=== PATIENT | female | born 1990 | race African-American/Black ===

== ENCOUNTER 2018-11-12 10:46 | Emergency (ER) | payer MEDICAID ==
[~2018-11-12] VITALS: Ht 177.8 cm; Wt 84.4 kg
--- NOTE | 2018-11-12 10:59 | NUR ---
ED Nurse Note: Pt ambulated to Ed from home. Pt is A&O x4, reporting 5/10 pain in left groin/hip area starting last night. pt is 22 weeks . Pt took tylenol last not but was ineffective. will continue to monitor Addendum: 11/12/18 at 1215 by KDEARING ED Nurse Note: Pt denies any vaginal bleeding at this time
--- NOTE | 2018-11-12 11:18 | NUR ---
ED Nurse Note: U/S tech contacted for pelvic u/s.
[2018-11-12 11:37] LABS: APPEARANCE,URINE CLEAR; BASOPHILS % (AUTO) 0.8 % (0.0-2.0); BILIRUBIN, URINE NEGATIVE (NEGATIVE); COLOR,URINE PALE YELLOW; EOSINOPHILS % (AUTO) 2.3 % (0.0-3.0); GLUCOSE, URINE (UA) NEGATIVE (NEGATIVE); HEMATOCRIT 35.2 % (37.0-47.0); KETONES,URINE NEGATIVE (NEGATIVE); LEUKOCYTE ESTERASE ,URINE 2+ (NEGATIVE); LYMPHOCYTES % (AUTO) 23.3 % (20.0-45.0); MEAN CORPUSCULAR VOLUME 86 FL (80-99); MONOCYTES % (AUTO) 6.3 % (1.0-10.0); NEUTROPHILS % (AUTO) 67.3 % (45.0-75.0); NITRITE,URINE NEGATIVE (NEGATIVE); PH,URINE 8 (4.5-8.0); PLATELET COUNT 179 K/UL (150-450); PROTEIN,URINE NEGATIVE (NEGATIVE); RED BLOOD COUNT 4.11 M/UL (4.20-5.40); RED CELL DISTRIBUTION WIDTH 12.3 % (11.6-14.8); UROBILINOGEN,URINE 1 MG/DL (0.0-1.0); WHITE BLOOD COUNT 6.8 K/UL (4.8-10.8)
[2018-11-12 11:47] LABS: ANION GAP 8 mmol/L (5-15); BLOOD UREA NITROGEN 7 mg/dL (7-18); CALCIUM 8.8 MG/DL (8.5-10.1); CARBON DIOXIDE 26 MMOL/L (21-32); CHLORIDE 102 MMOL/L (98-107); CREATININE 0.6 MG/DL (0.55-1.30); POTASSIUM 3.8 MMOL/L (3.5-5.1); SODIUM 136 MMOL/L (136-145)
[2018-11-12 11:52] LABS: ALANINE AMINOTRANSFERASE 37 U/L (12-78); ALBUMIN 3.1 G/DL (3.4-5.0); ALBUMIN/GLOBULIN RATIO 0.8 (1.0-2.7); ALKALINE PHOSPHATASE 80 U/L (46-116); ASPARTATE AMINO TRANSFERASE 27 U/L (15-37)
--- NOTE | 2018-11-12 12:25 | Emergency Room Report ---
History of Present Illness General Chief Complaint: Abdominal Pain Source: Patient (Kay Phillips DO) Present Illness HPI This patient is at 22 weeks gestational age. The has been normal without complications. The patient presents today for 1 day of lower abdominal pain. Patient describes the pain is diffusely in her lower pelvis. She denies vaginal bleeding. She denies abnormal vaginal discharge. She denies that the pain comes in waves. She does not believe she is having contractions but is unsure. She denies recent illness. She denies fever or chills. She denies nausea or vomiting. She denies dysuria or hematuria. She has no other complaints. (Kay Phillips DO) Allergies: Coded Allergies: No Known Allergies (Unverified , 11/12/18) Patient History Past Medical History: see triage record, other - Cholelithiasis, Abdominal hernia Social History: Denies: smoking, alcohol use, drug use Now: Yes - 22 weeks Reviewed Nursing Documentation: PMH: Agreed; PSxH: Agreed (Kay Phillips DO) Nursing Documentation-PMH Past Medical History: No History, Except For (Kay Phillips DO) Review of Systems All Other Systems: negative except mentioned in HPI (Kay Phillips DO) Physical Exam Vital Signs Date Time Temp Pulse Resp B/P (MAP) Pulse Ox O2 Delivery O2 Flow Rate FiO2 11/12/18 10:56 98.2 74 20 98 Room Air 11/12/18 11:58 99 Sp02 EP Interpretation: reviewed, normal General Appearance: no apparent distress, alert, GCS 15, non-toxic Head: normocephalic, atraumatic Eyes: bilateral eye normal inspection, bilateral eye PERRL ENT: hearing grossly normal, normal pharynx, no angioedema, normal voice Neck: full range of motion, supple/symm/no masses Respiratory: chest non-tender, lungs clear, normal breath sounds, no respiratory distress, no retraction, no accessory muscle use, speaking full sentences Cardiovascular #1: regular rate, rhythm, no edema Gastrointestinal: normal bowel sounds, soft, no guarding, no rebound, other - Gravid, C/W dates. Rectal: deferred Musculoskeletal: back normal, gait/station normal, normal range of motion, non- tender Neurologic: alert, oriented x3, responsive, motor strength/tone normal, sensory intact, speech normal Psychiatric: judgement/insight normal, memory normal, mood/affect normal, no suicidal/homicidal ideation Skin: normal color, no rash, warm/dry, well hydrated (Kay Phillips DO) Medical Decision Making Diagnostic Impression: Primary Impression: Abdominal pain during ER Course Patient evaluation overall is reassuring. I have a low suspicion for a serious intra-abdominal bacterial infection. Although, appendicitis can be atypical in . However I do have low suspicion for that at this time. The patient underwent OB ultrasound which showed an intrauterine with heartbeat at 22 weeks. See official report in the electronic medical record. The patient was educated that a negative ultrasound evaluation does not insure well-being or positive outcome for the . monitoring including a nonstress test may be needed and clinical evaluation by SLAG WORKER is highly recommended and that she is pending transfer to [facility] for monitoring. Laboratory Tests Test 11/12/18 11:25 White Blood Count 6.8 K/UL (4.8-10.8) Red Blood Count 4.11 M/UL (4.20-5.40) L Hemoglobin 12.0 G/DL (12.0-16.0) Hematocrit 35.2 % (37.0-47.0) L Mean Corpuscular Volume 86 FL (80-99) Mean Corpuscular Hemoglobin 29.2 PG (27.0-31.0) Mean Corpuscular Hemoglobin Concent 34.0 G/DL (32.0-36.0) Red Cell Distribution Width 12.3 % (11.6-14.8) Platelet Count 179 K/UL (150-450) Mean Platelet Volume 7.1 FL (6.5-10.1) Neutrophils (%) (Auto) 67.3 % (45.0-75.0) Lymphocytes (%) (Auto) 23.3 % (20.0-45.0) Monocytes (%) (Auto) 6.3 % (1.0-10.0) Eosinophils (%) (Auto) 2.3 % (0.0-3.0) Basophils (%) (Auto) 0.8 % (0.0-2.0) Urine Color Pale yellow Urine Appearance Clear Urine pH 8 (4.5-8.0) Urine Specific [place] 1.010 (1.005-1.035) Urine Protein Negative (NEGATIVE) Urine Glucose (UA) Negative (NEGATIVE) Urine Ketones Negative (NEGATIVE) Urine Blood Negative (NEGATIVE) Urine Nitrite Negative (NEGATIVE) Urine Bilirubin Negative (NEGATIVE) Urine Urobilinogen 1 MG/DL (0.0-1.0) H Urine Leukocyte Esterase 2+ (NEGATIVE) H Urine RBC 0 /HPF (0 - 2) Urine WBC 2-4 /HPF (0 - 2) Urine Squamous Epithelial Cells Occasional /LPF Urine Bacteria Few /HPF (NONE) Sodium Level 136 MMOL/L (136-145) Potassium Level 3.8 MMOL/L (3.5-5.1) Chloride Level 102 MMOL/L (98-107) Carbon Dioxide Level 26 MMOL/L (21-32) Anion Gap 8 mmol/L (5-15) Blood Urea Nitrogen 7 mg/dL (7-18) Creatinine 0.6 MG/DL (0.55-1.30) Estimate Glomerular Filtration Rate > 60 mL/min (>60) Glucose Level 87 MG/DL (74-106) Calcium Level 8.8 MG/DL (8.5-10.1) Total Bilirubin 1.0 MG/DL (0.2-1.0) Aspartate Amino Transferase (AST) 27 U/L (15-37) Alanine Aminotransferase (ALT) 37 U/L (12-78) Alkaline Phosphatase 80 U/L (46-116) Total Protein 6.9 G/DL (6.4-8.2) Albumin 3.1 G/DL (3.4-5.0) L Globulin 3.8 g/dL Albumin/Globulin Ratio 0.8 (1.0-2.7) L Human Chorionic Gonadotropin, Quant 07169 mIU/mL (1-6) H (Kay Phillips DO) ER Course Please note that the patient was being contacted to [facility] for transfer patient is over 20 weeks and had presented for abdominal pain. Initial blood work was appropriate here And given the patient's gestational age require transfer at this time patient has presented and reports that she has to pickup her daughter from school and cannot be transferred at this time patient is aware that at 22 weeks she requires monitoring and possible intervention if needed bleeding at this time can lead to worsening symptoms and possible miscarriage, demise , risking life of mother as well Patient is awake and oriented full decision-making capacity and is leaving AGAINST MEDICAL ADVICE, (Chalo Green DO) CT/MRI/US Diagnostic Results CT/MRI/US Diagnostic Results : Imaging Test Ordered: US OB Impression Single living IUP 22 weeks 6 days. Portions of anatomy not well demonstrated on this study. Suggest follow-up ultrasound. Maternal right hydronephrosis probably related to gravid state. Maternal Cholelithiasis. (Kay Phillips DO) Last Vital Signs Date Time Temp Pulse Resp B/P (MAP) Pulse Ox O2 Delivery O2 Flow Rate FiO2 11/12/18 11:58 16 Room Air 99 11/12/18 10:56 98.2 74 98 (Kay Phillips DO) Referrals: NON PHYSICIAN (PCP) Kay Phillips DO November 12, 2018 12:25 Chalo Green DO November 12, 2018 13:23
--- NOTE | 2018-11-12 13:00 | NUR ---
ED Nurse Note: Patient states 'I need to leave now. I need to waste picker kids'. Significant other at bedside. Dr. Green notified.
[2018-11-12 13:15] VITALS: BP 111/73
--- NOTE | 2018-11-12 13:15 | NUR ---
Note maeveone in EDM - 11/12/18 at 1420 by BUSHRA ED Nurse Note: Dr. Green told patient of possible risks and consequences of her leaving the hospital with current condition and pending u/s result. Patient signed ASA form. Patient states she is going [facility] L&D unit after discharge. Patient ambulated out with steady gait with all her belongings, accompained by friend. Patient remained awake, alert, oriented x 4. No facial grimacing or guarding noted.
--- NOTE | 2018-11-12 13:15 | NUR ---
ED Nurse Note: Dr. Green told patient of possible risks and consequences of her leaving the hospital against medical advice with current condition and pending u/s result. Patient signed AMA form. Patient states she is going [facility] L&D unit after discharge. Patient ambulated out with steady gait with all her belongings, accompained by friend. Patient remained awake, alert, oriented x 4. No facial grimacing or guarding noted.
[2018-11-12 13:29] VITALS: BP 111/73
--- NOTE | 2018-11-12 15:12 | Diagnostic Imaging Report ---
Indication: Abdominal pain. Technique: Grayscale and duplex Doppler imaging of the pelvis performed utilizing a transabdominal scan and endovaginal scan. Comparison: None Findings: related findings: Limited OB ultrasound performed. Single living intrauterine demonstrated, in vertex presentation. Gestational age based on sonographic criteria is 22 weeks 6 days. Portions of anatomy are demonstrated. No gross anomalies are identified. The placenta is anterior. SHELBY is 22.7 cm. Estimated weight is 471 g. measurements are as follows: Biparietal diameter 5.57 cm, 23 weeks. Head circumference 20.39 cm, 22 weeks 4 days. Abdominal circumference 16.5 cm, 21 weeks 4 days. Femur length 3.88 cm, 22 weeks 3 days. The cervix is closed and measures about 4 cm in length. Maternal findings: There is mild right maternal hydronephrosis presumably related to the gravid state. Multiple gallstones noted. CBD is normal measuring 5 mm. IMPRESSION: Single living IUP 22 weeks 6 days. Portions of anatomy not well demonstrated on this study. Suggest follow-up ultrasound. Maternal right hydronephrosis probably related to gravid state. Maternal Cholelithiasis. Note: A negative ultrasound evaluation does not insure well-being or positive outcome for the . monitoring including a nonstress test may be needed and clinical evaluation by FINANCIAL MANAGEMENT is highly recommended.
== END 2018-11-12 13:15 | disposition left against medical advice (07) ==
LOC: EMR 11:30
DX: O26.92 Pregnancy related conditions, unspecified, second trimester (principal); R10.30 Lower abdominal pain, unspecified; O99.89 Other specified diseases and conditions complicating pregnancy, childbirth and the puerperium; N13.30 Unspecified hydronephrosis; O99.612 Diseases of the digestive system complicating pregnancy, second trimester; K80.20 Calculus of gallbladder without cholecystitis without obstruction; Z3A.22 22 weeks gestation of pregnancy
CPT/HCPCS: 36415; 76805; 80053; 81003; 84702; 85025; 99284